=== PATIENT | male | born 1985 | race Caucasian/White ===

== ENCOUNTER → 2022-12-20 18:51 | Outpatient (CLI) | payer OTHER, SELFPAY ==
--- NOTE | 2022-12-20 18:54 | DI.MRI.S_ITS ---
PROCEDURE: MR KNEE RT WO CON INDICATIONS: Unilateral post-traumatic osteoarthritis, right kn TECHNIQUE: Noncontrast sagittal PD fast spin echo and T2 fast spin echo with fat saturation, sagittal 3-D FLASH with fat saturation; coronal T1 spin echo and PD fast spin echo with fat saturation, and axial PD fast spin echo with fat saturation through the knee. COMPARISON: [facility] [place], CR, XR KNEE 4+ VIEWS RIGHT, 10/09/2022, 16:05. FINDINGS: Image quality: Degraded by metallic artifact. Menisci: There is truncation of the free edge of the medial meniscal body, indicating radial tearing. There is partial detachment of the peripheral 3rd of the posterior horn medial meniscus. Truncation of the free edge of the lateral meniscal body is present, indicating radial tearing. Cruciate ligaments: The anterior cruciate ligament graft and posterior cruciate ligaments appear intact. Medial structures: The medial collateral ligament appears intact. Visualized portions of the pes anserinus tendons appear normal. No abnormal bursal fluid. Lateral structures: The lateral collateral ligament, long and short heads of the biceps femoris tendon appear intact. The popliteus tendon appears normal. Iliotibial band appears normal. Anterior structures: The quadriceps and patellar tendons appear intact. Patellar alignment is normal. No femoral trochlear dysplasia or ventral trochlear prominence. No edema in the infrapatellar fat pad. Bones and cartilage: No bone marrow contusions or fractures. Metallic artifact within the anterior patella. Mild tricompartmental periarticular osteophyte formation. Severe articular cartilage loss overlies the weight-bearing aspect of the medial femoral condyle. Mild articular cartilage loss diffusely overlies the weight-bearing aspects of the lateral femoral condyle and lateral tibial plateau. Superimposed 3 mm region of high-grade articular cartilage loss overlies the posterior weight-bearing aspect of the lateral femoral condyle. Moderate articular cartilage loss overlies the medial and lateral patellar apex as well as the medial patellar facet. The cartilage of the medial and lateral femorotibial compartments, as well as the patellofemoral compartment, appears normal in thickness. Joint space: There is physiolog a small knee joint effusion. No Jones's cyst. Normal appearing synovial plicae are incidentally noted. IMPRESSION: 1. Intact ACL graft. 2. Medial and lateral meniscal tearing. 3. Tricompartmental osteoarthritis with associated articular cartilage loss. 4. Small knee joint effusion. Dictated by: Ashwini Mejia M.D. on 12/21/2022 at 9:00 Approved by: Ashwini Mejia M.D. on 12/21/2022 at 9:02
== END ==
PROVIDERS: Referring Provider Orthopaedic Surgery; Visit Provider Orthopaedic Surgery
DX: M17.31 Unilateral post-traumatic osteoarthritis, right knee (principal); S83.281A Other tear of lateral meniscus, current injury, right knee, initial encounter; S83.241A Other tear of medial meniscus, current injury, right knee, initial encounter; M17.11 Unilateral primary osteoarthritis, right knee; M25.461 Effusion, right knee
CPT/HCPCS: 73721

== ENCOUNTER → 2023-01-11 | Outpatient (CLI) | payer OTHER, SELFPAY | LOC: MRI 09-09 09:23 | PROVIDERS: Referring Provider Orthopaedic Surgery; Visit Provider Orthopaedic Surgery ==

== ENCOUNTER → 2023-01-17 19:41 | Outpatient (CLI) | payer OTHER, SELFPAY ==
--- NOTE | 2023-01-17 | DI.MRI.S_ITS ---
PROCEDURE: MR KNEE LT WO CON INDICATIONS: PAIN IN LEFT KNEE TECHNIQUE: Noncontrast sagittal PD fast spin echo and T2 fast spin echo with fat saturation, sagittal 3-D FLASH with fat saturation; coronal T1 spin echo and PD fast spin echo with fat saturation, and axial PD fast spin echo with fat saturation through the knee. COMPARISON: [facility] [place], CR, XR KNEE 4+ VIEWS RIGHT, 10/09/2022, 16:05. FINDINGS: Image quality: Excellent. Menisci: The medial and lateral menisci demonstrate normal morphology and internal signal. The meniscal root ligaments appear intact. Cruciate ligaments: The anterior and posterior cruciate ligaments appear intact. Medial structures: The medial collateral ligament appears intact. Visualized portions of the pes anserinus tendons appear normal. No abnormal bursal fluid. Lateral structures: The lateral collateral ligament, long and short heads of the biceps femoris tendon appear intact. The popliteus tendon appears normal. Iliotibial band appears normal. Anterior structures: The quadriceps and patellar tendons appear intact. Patellar alignment is normal. No femoral trochlear dysplasia or ventral trochlear prominence. No edema in the infrapatellar fat pad. Bones and cartilage: No bone marrow contusions or fractures. Mild articular cartilage loss diffusely overlies the weight-bearing aspects of the medial femoral condyle and medial tibial plateau. Articular cartilage fibrillation overlies the patellar apex and lateral facet. Joint space: There is a small knee joint effusion.. No Jones's cyst. Normal appearing synovial plicae are incidentally noted. IMPRESSION: 1. No internal derangement. 2. Medial and patellofemoral compartment articular cartilage loss. 3. Small knee joint effusion. Dictated by: Ashwini Mejia M.D. on 01/18/2023 at 9:02 Approved by: Ashwini Mejia M.D. on 01/18/2023 at 9:04
== END ==
PROVIDERS: Referring Provider Orthopaedic Surgery; Visit Provider Orthopaedic Surgery
DX: M23.92 Unspecified internal derangement of left knee (principal); M25.462 Effusion, left knee
CPT/HCPCS: 73721